=== PATIENT | female | born 1970 | race Caucasian/White ===

== ENCOUNTER 2016-05-01 11:44 | Emergency (ER) | payer OTHER ==
--- NOTE | 2016-05-01 12:28 | RAD ---
HAND-LEFT 3 VIEWS COMPARISON: None. HISTORY: Note that injury to the index, middle, and ring fingers. IMPRESSION: Views: Left hand PA, oblique, lateral. Bones: Normal Joints: Normal. Soft tissues: Normal. IMPRESSION: Normal study.
[2016-05-01] MEDS ORDERED: CEPHALEXIN 500 MG CAPSULE ONE (13:49)
[2016-05-01] MEDS ORDERED: HYDROCODONE/ACETAMINOPHEN 5/325MG TABLET ONE ×2 (13:50)
[2016-05-01] MEDS ORDERED: DIPHTH,PERTUSS(ACELL),TET VAC 0.5 ML VIAL IM V ONE (13:59)
== END 2016-05-01 14:12 | disposition home or self-care (01) ==
LOC: ED 11:44
DX: S61.233A Puncture wound without foreign body of left middle finger without damage to nail, initial encounter (principal); S61.235A Puncture wound without foreign body of left ring finger without damage to nail, initial encounter; S61.237A Puncture wound without foreign body of left little finger without damage to nail, initial encounter; Z23 Encounter for immunization; W29.4XXA Contact with nail gun, initial encounter; Y93.9 Activity, unspecified; Y92.9 Unspecified place or not applicable
CPT/HCPCS: 90715; 73130; 90471; 99283 ×2; A9270 ×3